=== PATIENT | female | born 1985 | race Two or more races ===

== ENCOUNTER 2024-08-16 10:44 | Observation (INO) | payer MEDICAID ==
[2024-08-16] MEDS ORDERED: INSU100I70 SC (11:11)
[2024-08-16] MEDS ORDERED: METF-370 PO (11:11)
[2024-08-16] MEDS ORDERED: PREN-96 PO (11:11)
[2024-08-16] MEDS ORDERED: GLYB2.5T8 PO (11:11)
--- NOTE | 2024-08-17 09:16 | DVHDS2 ---
Obstetrics Discharge Summary Obstetrics Discharge Summary Date of Admission: Aug 16, 2024 Date of Discharge: Aug 16, 2024 Reason For Admission: Observational/Evaluation ( Status GDM A2 evaluation) Procedures: NST, Ultrasound Discharge Diagnosis: Others (Reasuring infant ) Discharge Information: Activity, Diet (Routine), Medications (None), I nstructions (Routine), Discharge to (Home), Discarge date RAGHU MUKHERJEE DO Aug 17, 2024 09:16
== END 2024-08-16 11:40 | disposition home or self-care (01) ==
LOC: LDRP 10:44
PROVIDERS: ADMIT Obstetrics & Gynecology; ATTEND Obstetrics & Gynecology
DX: O24.419 Gestational diabetes mellitus in pregnancy, unspecified control (principal); Z98.890 Other specified postprocedural states; Z79.899 Other long term (current) drug therapy; Z3A.29 29 weeks gestation of pregnancy
CPT/HCPCS: 59025; 81002; 82948; 82962; 94760; G0378

== ENCOUNTER 2024-08-20 11:05 | Observation (INO) | payer MEDICAID ==
[~2024-08-20] VITALS: Ht 162.6 cm; Wt 102.1 kg
[~2024-08-20 11:05] MED LIST: GLYB2.5T8 PO; INSU100I70 SC; METF-370 PO; PREN-96 PO
== END 2024-08-20 12:16 | disposition home or self-care (01) ==
LOC: LDRP 11:05 → UNDOADMOB 11:05 → LDRP 11:18 → UNDODISOB 12:16
PROVIDERS: ADMIT Obstetrics & Gynecology; ATTEND Obstetrics & Gynecology
DX: O24.419 Gestational diabetes mellitus in pregnancy, unspecified control (principal); O99.323 Drug use complicating pregnancy, third trimester; F12.90 Cannabis use, unspecified, uncomplicated; Z3A.29 29 weeks gestation of pregnancy; Z79.899 Other long term (current) drug therapy
CPT/HCPCS: 59025; 81002; 94760; G0378

== ENCOUNTER 2024-08-23 09:02 | Observation (INO) | payer MEDICAID ==
--- NOTE | 2024-08-23 13:09 | DVHDS2 ---
Physician Discharge Progress N Final Diagnosis: GDM Operations or Procedures: Operations or Procedures NST,SONO Condition on Discharge: Good Disposition: Home Discharge Instructions: Diet: Consistent carbohydrate Activity: No Restrictions, As Tolerated Medications: NA Follow Up Care: Specialist: 4D Discharge Statement: "Patient was advised to return to the ER or call 911 if any headaches, dizziness, shortness of breath, chest pain, abdominal pain, bleeding, fevers, or worsening of medical condition. Patient was counseled about treatment plan, medications, possible side effects, patientverbalized understanding. All questions were answered to the best of my ability. This discharge took greater then 30 minutes in planning, reviewing documentation, counseling the patient, and discussing with other team members." TRISTAN VENEGAS DO Aug 23, 2024 13:09
== END 2024-08-23 10:27 | disposition home or self-care (01) ==
LOC: LDRP 09:02
PROVIDERS: ADMIT Obstetrics & Gynecology; ATTEND Obstetrics & Gynecology
DX: O24.419 Gestational diabetes mellitus in pregnancy, unspecified control (principal); Z98.890 Other specified postprocedural states; Z79.899 Other long term (current) drug therapy; Z3A.30 30 weeks gestation of pregnancy
CPT/HCPCS: 59025; 81002; 82948; 82962; 94760; G0378

== ENCOUNTER 2024-08-27 07:58 | Observation (INO) | payer MEDICAID ==
[~2024-08-27] VITALS: Ht 162.6 cm; Wt 102.1 kg
--- NOTE | 2024-08-27 11:50 | DVHDS2 ---
Physician Discharge Progress N Final Diagnosis: gdm Operations or Procedures: Operations or Procedures nst,sono Condition on Discharge: Good Disposition: Home Discharge Instructions: Diet: Consistent carbohydrate Activity: Light activity Medications: na Follow Up Care: Specialist: 4d Discharge Statement: "Patient was advised to return to the ER or call 911 if any headaches, dizziness, shortness of breath, chest pain, abdominal pain, bleeding, fevers, or worsening of medical condition. Patient was counseled about treatment plan, medications, possible side effects, patientverbalized understanding. All questions were answered to the best of my ability. This discharge took greater then 30 minutes in planning, reviewing documentation, counseling the patient, and discussing with other team members." Visit Coding OBGYN Date of Service: Aug 27, 2024 Billing Provider: TRISTAN VENEGAS DO RETAIL MANAGER IN TRAINING Common Visit Codes: 25985-[id number] OBS CARE (HIGH) TRISTAN VENEGAS DO Aug 27, 2024 11:50
== END 2024-08-27 11:56 | disposition home or self-care (01) ==
LOC: LDRP 11:00
PROVIDERS: ADMIT Obstetrics & Gynecology; ATTEND Obstetrics & Gynecology
DX: O24.419 Gestational diabetes mellitus in pregnancy, unspecified control (principal); O99.323 Drug use complicating pregnancy, third trimester; F12.90 Cannabis use, unspecified, uncomplicated; Z3A.30 30 weeks gestation of pregnancy; Z79.899 Other long term (current) drug therapy
CPT/HCPCS: 59025; 81002; 82948; 82962; 94760; G0378

== ENCOUNTER 2024-08-30 09:55 | Observation (INO) | payer MEDICAID ==
--- NOTE | 2024-08-31 07:50 | DVHDS2 ---
Physician Discharge Progress N Final Diagnosis: GDM Operations or Procedures: Operations or Procedures NST/BPP/RAMAKRISHNA Accucheck All WNL Condition on Discharge: Stable Disposition: Home Discharge Instructions: Diet: Consistent carbohydrate Activity: No Restrictions, As Tolerated Follow Up/Referral: As scheduled Medications: N/A Follow Up Care: Discharge Statement: "Patient was advised to return to the ER or call 911 if any headaches, dizziness, shortness of breath, chest pain, abdominal pain, bleeding, fevers, or worsening of medical condition. Patient was counseled about treatment plan, medications, possible side effects, patientverbalized understanding. All questions were answered to the best of my ability. This discharge took greater then 30 minutes in planning, reviewing documentation, counseling the patient, and discussing with other team members." Visit Coding OBGYN Date of Service: Aug 30, 2024 Billing Provider: JEVON ORTEGA DO BUSINESS OPERATIONS DIRECTOR Common Visit Codes: 03062-BKD/OBS SAME DATE (MOD) BUSINESS OPERATIONS DIRECTOR Procedure Codes: 53438-84- NON-STRESS TEST JEVON ORTEGA DO Aug 31, 2024 07:50
== END 2024-08-30 10:55 | disposition home or self-care (01) ==
LOC: LDRP 09:55
PROVIDERS: ADMIT Obstetrics & Gynecology; ATTEND Obstetrics & Gynecology
DX: O24.419 Gestational diabetes mellitus in pregnancy, unspecified control (principal); Z98.890 Other specified postprocedural states; Z79.899 Other long term (current) drug therapy; Z3A.31 31 weeks gestation of pregnancy
CPT/HCPCS: 59025; 81002; 82948; 82962; 94760; G0378

== ENCOUNTER 2024-09-03 12:36 | Observation (INO) | payer MEDICAID ==
--- NOTE | 2024-09-03 16:53 | DVHDS2 ---
Physician Discharge Progress N Final Diagnosis: testing for GDM, A2 Operations or Procedures: Operations or Procedures 39yo IUP@31.6wks, +FM, denies UCs/LOF/VB VSS NST reactive FKC/PTL precautions reviewed. Dr. Lockwood consulted, agrees with POC. Condition on Discharge: Stable Disposition: Home Discharge Instructions: Diet: Consistent carbohydrate Activity: No Restrictions, As Tolerated Medications: see med list Follow Up Care: Specialist: f/u in 3 days Discharge Statement: "Patient was advised to return to the ER or call 911 if any headaches, dizziness, shortness of breath, chest pain, abdominal pain, bleeding, fevers, or worsening of medical condition. Patient was counseled about treatment plan, medications, possible side effects, patientverbalized understanding. All questions were answered to the best of my ability. This discharge took greater then 30 minutes in planning, reviewing documentation, counseling the patient, and discussing with other team members." Visit Coding OBGYN Date of Service: Sep 03, 2024 Billing Provider: ROSALIO WASHINGTON CNM SUPERVISOR BOARDING Common Visit Codes: 98776-ICFXEOE OBS CARE (HIGH) ROSALIO WASHINGTON CNM Sep 03, 2024 16:53
== END 2024-09-03 15:15 | disposition home or self-care (01) ==
LOC: LDRP 13:47 → UNDOADMOB 13:47 → LDRP 14:01 → UNDODISOB 15:15
PROVIDERS: ADMIT Obstetrics & Gynecology; ATTEND Obstetrics & Gynecology
DX: O24.419 Gestational diabetes mellitus in pregnancy, unspecified control (principal); Z3A.31 31 weeks gestation of pregnancy; Z79.899 Other long term (current) drug therapy
CPT/HCPCS: 59025; 81002; 82948; 82962; 94760; G0378

== ENCOUNTER 2024-09-06 09:00 | Observation (INO) | payer MEDICAID ==
--- NOTE | 2024-09-06 09:43 | DVH ---
CLINICAL HISTORY: Gestational diabetes. COMPARISON: None TECHNIQUE: biophysical profile was performed. Transabdominal sonographic images of the fetus we re obtained. FINDINGS: The fetus is in cephalic position. heart rate measures 131 BPM. Amniotic fluid index measures 18.6 cm. The placenta is posterior in position. Dense of placenta previa or abruption.ii BPP profile is an overall score of 8/8, with 2/2 points for breathing, with at least one episode of breathing over a 30 second duration during a 30 minute observation, 2/2 points for m ovements, with 3 or more discrete body or limb movements, 2/2 points for tone, with one or more episodes of extremity extension with return to flexion, or opening and closing of hand, and 2/ 2 points for amniotic fluid, with at least 1 pocket of amniotic fluid that measures 2 cm in 2 perpend icular planes. IMPRESSION: BPP score of 8/8.
--- NOTE | 2024-09-06 22:29 | DVHDS2 ---
Physician Discharge Progress N Final Diagnosis: iup at 32 wks with gdma2 Operations or Procedures: Operations or Procedures nst,sono 32wks Condition on Discharge: Good Disposition: Home Discharge Instructions: Diet: Consistent carbohydrate Activity: No Restrictions, As Tolerated Medications: na Follow Up Care: Specialist: 4d Discharge Statement: "Patient was advised to return to the ER or call 911 if any headaches, dizziness, shortness of breath, chest pain, abdominal pain, bleeding, fevers, or worsening of medical condition. Patient was counseled about treatment plan, medications, possible side effects, patientverbalized understanding. All questions were answered to the best of my ability. This discharge took greater then 30 minutes in planning, reviewing documentation, counseling the patient, and discussing with other team members." Visit Coding OBGYN Date of Service: Sep 06, 2024 Billing Provider: TRISTAN VENEGAS DO UNDERGROUND UTILITY LOCATOR Common Visit Codes: 96591-PPSPZKC INP/OBS CARE (HIGH), 01355-MCP/OBS DISCH DAY >30MIN UNDERGROUND UTILITY LOCATOR Procedure Codes: 37698-03- NON-STRESS TEST TRISTAN VENEGAS DO Sep 06, 2024 22:29
== END 2024-09-06 10:05 | disposition home or self-care (01) ==
LOC: LDRP 09:00
PROVIDERS: ADMIT Obstetrics & Gynecology; ATTEND Obstetrics & Gynecology
DX: O24.419 Gestational diabetes mellitus in pregnancy, unspecified control (principal); Z3A.32 32 weeks gestation of pregnancy; Z79.899 Other long term (current) drug therapy; Z98.890 Other specified postprocedural states
CPT/HCPCS: 59025; 76818; 81002; 82948; 82962; 94760; G0378

== ENCOUNTER 2024-09-10 14:07 | Observation (INO) | payer MEDICAID ==
--- NOTE | 2024-09-10 15:57 | DVH ---
CLINICAL HISTORY: Gestational diabetes. COMPARISON: US BIOPHYSICAL PROFILE on DOS: 09/06/24 TECHNIQUE: biophysical profile was performed. Transabdominal sonographic images of the fetus we re obtained. FINDINGS: The fetus is in cephalic position. heart rate measures 141 BPM. Amniotic fluid index measures 23.3 cm. The placenta is posterior in position. BPP profile is an overall score of 8/8, with 2/2 points for breathing, with at least one episode of breathing over a 30 second duration during a 30 minute observation, 2/2 points for m ovements, with 3 or more discrete body or limb movements, 2/2 points for tone, with one or more episodes of extremity extension with return to flexion, or opening and closing of hand, and 2/ 2 points for amniotic fluid, with at least 1 pocket of amniotic fluid that measures 2 cm in 2 perpend icular planes. IMPRESSION: 1. BPP score of 8/8. 2. Amniotic fluid index measures 23.3 cm.
--- NOTE | 2024-09-10 16:27 | DVHDS2 ---
Physician Discharge Progress N Final Diagnosis: testing for GDM, A2 Problems List: (1) GDM, class A2 Operations or Procedures: Operations or Procedures 39yo IUP@32.6wks, +FM, denies UCs/LOF/VB VSS BG-84 NST reactive FKC/PTL precautions reviewed Dr. Lockwood consulted, agrees with POC. Other Interventions Other Interventions [address] [address] Ph: [phone] DIAGNOSTIC IMAGING Diagnostic Imaging Report : [id number] Signed PATIENT: KEREN REYES ACCT: [id number] UNIT: [id number] : 1985 LOC: [facility] ROOM / BED: TRIAGE1 / A AGE / SEX: 39 / F ADM STATUS: ADM IN SERVICE 1503 ORDERING PHYSICIAN: TRISTAN LOCKWOOD DO PROCEDURE(s): BPP - BIOPHYSICAL PROFILE REASON: GDMA2 ORDER NUMBER(s): [id number], ACCESSION NUMBER(s): [id number] CLINICAL HISTORY: Gestational diabetes. COMPARISON: US BIOPHYSICAL PROFILE on DOS: 09/06/24 TECHNIQUE: biophysical profile was performed. Transabdominal sonographic images of the fetus were obtained. FINDINGS: The fetus is in cephalic position. heart rate measures 141 BPM. Amniotic fluid index measures 23.3 cm. The placenta is posterior in position. BPP profile is an overall score of 8/8, with 2/2 points for breathing, with at least one episode of breathing over a 30 second duration during a 30 minute observation, 2/2 points for movements, with 3 or more discrete body or limb movements, 2/2 points for tone, with one or more episodes of extremity extension with return to flexion, or opening and closing of hand, and 2/2 points for amniotic fluid, with at least 1 pocket of amniotic fluid that measures 2 cm in 2 perpendicular planes. IMPRESSION: 1. BPP score of 8/8. 2. Amniotic fluid index measures 23.3 cm. ATED BY: FARHAD CORCORAN DO DICTATED DATE/TIME: 09/10/24 [id number] SIGNED BY: FARHAD CORCORAN DO SIGNED DATE/TIME: 09/10/24 6265 CC: Condition on Discharge: Stable Disposition: Home Discharge Instructions: Diet: Consistent carbohydrate Activity: No Restrictions, As Tolerated Medications: see med list Follow Up Care: Specialist: f/u in 3 days Discharge Statement: "Patient was advised to return to the ER or call 911 if any headaches, dizziness, shortness of breath, chest pain, abdominal pain, bleeding, fevers, or worsening of medical condition. Patient was counseled about treatment plan, medications, possible side effects, patientverbalized understanding. All questions were answered to the best of my ability. This discharge took greater then 30 minutes in planning, reviewing documentation, counseling the patient, and discussing with other team members." Visit Coding OBGYN Date of Service: Sep 10, 2024 Billing Provider: ROSALIO WASHINGTON CNM MS SQL DBA Common Visit Codes: 65619-ADBQFPH OBS CARE (HIGH) MS SQL DBA Procedure Codes: 67220-41- NON-STRESS TEST ROSALIO WASHINGTON CNM Sep 10, 2024 16:27
== END 2024-09-10 16:42 | disposition home or self-care (01) ==
LOC: LDRP 14:56
PROVIDERS: ADMIT Obstetrics & Gynecology; ATTEND Obstetrics & Gynecology
DX: O24.419 Gestational diabetes mellitus in pregnancy, unspecified control (principal); Z98.890 Other specified postprocedural states; Z79.899 Other long term (current) drug therapy; Z3A.32 32 weeks gestation of pregnancy
CPT/HCPCS: 59025; 76818; 81002; 82948; 82962; G0378

== ENCOUNTER 2024-09-13 11:00 | Observation (INO) | payer MEDICAID ==
--- NOTE | 2024-09-13 12:29 | DVH ---
BIOPHYSICAL PROFILE HISTORY: GDMA2 TECHNIQUE: Multiple real-time grayscale sonographic images through the gravid uterus of the fetus wi th duplex Doppler color flow. FINDINGS: BIOPHYSICAL PROFILE: breathing score: 2 movement score: 2 tone score: 2 Quantitative RAMAKRISHNA score: 2 Total score: 8 out of 8 Single live intrauterine . heart rate of 161 beats per minute. Placenta posteriorly positioned. Cephalic lie. RAMAKRISHNA 26 cm. IMPRESSION: 1. Biophysical profile score: 8 out of 8 2. Elevated RAMAKRISHNA/polyhydramnios.
--- NOTE | 2024-09-14 10:58 | DVHDS2 ---
Discharge Summary Date of Admission Sep 13, 2024 at 11:00 Date of Discharge: Sep 13, 2024 Admitting Diagnosis Not admitted Wounds: Not applicable Labs/Diagnostic Data: Laboratory Results Test 09/13/24 11:45 POC Glucose 101 mg/dl (70-106) Brief Hx & Hospital Course: Patient had normal NST reassuring ultrasound stable for discharge Consults/Reason for consult No consult Condition at Discharge: Good (ons) Final Diagnosis/Problems List GDM A2 intrauterine Discharge Disposition: Home SNF Discharge Will this Physician continue t: No Discharge Instruct/Medications Diet: Consistent carbohydrate, See Comment Diet comment: gestational Diabetes 2 Activity: No Restrictions, As Tolerated Activity comment: Kick Follow Up/Referral: Counts labor precautions as scheduled for usual monitoring biweekly Medications: Continue all prescription medication exactly as prescribed Discharge Statement: "Patient was advised to return to the ER or call 911 if any headaches, dizziness, shortness of breath, chest pain, abdominal pain, bleeding, fevers, or worsening of medical condition. Patient was counseled about treatment plan, medications, possible side effects, patientverbalized understanding. All questions were answered to the best of my ability. This discharge took greater then 30 minutes in planning, reviewing documentation, counseling the patient, and discussing with other team members." ASSESSMENT ASSESSMENT Assessment Visit Coding OBGYN Date of Service: Sep 14, 2024 Billing Provider: RAGHU MUKHERJEE DO FLAME DEGREASER Common Visit Codes: 04257-GZU/OBS SAME DATE (LOW), 20188-YWZ/OBS SAME DATE (MOD), 24387-PXE/OBS SAME DATE (HIGH) FLAME DEGREASER Procedure Codes: 43688-94- NON-STRESS TEST RAGHU MUKHERJEE DO Sep 14, 2024 10:58
== END 2024-09-13 12:31 | disposition home or self-care (01) ==
LOC: LDRP 11:00
PROVIDERS: ADMIT Obstetrics & Gynecology; ATTEND Obstetrics & Gynecology
DX: O24.419 Gestational diabetes mellitus in pregnancy, unspecified control (principal); Z98.890 Other specified postprocedural states; Z79.899 Other long term (current) drug therapy; Z3A.33 33 weeks gestation of pregnancy
CPT/HCPCS: 59025; 76818; 81002; 82948; 82962; G0378

== ENCOUNTER 2024-09-17 06:36 | Observation (INO) | payer MEDICAID ==
[~2024-09-17] VITALS: Ht 162.6 cm; Wt 99.8 kg
--- NOTE | 2024-09-17 11:24 | DVH ---
BIOPHYSICAL PROFILE HISTORY: GDM TECHNIQUE: Multiple transabdominal real-time grayscale sonographic images through the gravid uterus of the fetus with duplex Doppler color flow and M-mode spectral analysis FINDINGS: BIOPHYSICAL PROFILE: breathing score: 2 movement score: 2 tone score: 2 Quantitative RAMAKRISHNA score: 2 (RAMAKRISHNA: 28.4 Cm.) Total score: 8 The cervix not well visualized. IMPRESSION: Biophysical profile score: 8 Polyhydramnios with RAMAKRISHNA of 28 cm
[2024-09-17 12:14] LABS: Urine Bacteria FEW /hpf (None Seen); Urine Blood Negative /uL (Negative); Urine Clarity Clear (Clear); Urine Color Colorless (Yellow); Urine Protein, UAD Negative (Negative); Urine Specific Gravity 1.003 (1.001-1.035); Urine Squamous Epithelial Cell FEW /hpf (<5); Urine Urobilinogen Normal (Negative); Urine WBC < 1 /HPF (0-5); Urine pH 6.5 (5.0-9.0)
[2024-09-17] MEDS: LACTATED RINGER'S 1,000 ML IV ONE (12:15)
[2024-09-17 12:32] LABS: Amphetamine Screen, Urine Neg (NEGATIVE); Barbiturate Scree,Urine Neg (NEGATIVE); Benzodiazephine Screen, Urine Neg (NEGATIVE); Cannabinoid Screen, Urine Pos (NEGATIVE); Cocaine Screen, Urine Neg (NEGATIVE); Opiate Scree,Urine Neg (NEGATIVE); Phencyclidine Screen, Urine Neg (NEGATIVE)
--- NOTE | 2024-09-17 12:56 | DVHDS2 ---
Physician Discharge Progress N Final Diagnosis: gdma2 Operations or Procedures: Operations or Procedures tessatorlandoruma Commentary: Commentary ivf Condition on Discharge: Good Disposition: Home Discharge Instructions: Diet: Consistent carbohydrate Activity: No Restrictions, As Tolerated Medications: na Follow Up Care: Specialist: 3d Discharge Statement: "Patient was advised to return to the ER or call 911 if any headaches, dizziness, shortness of breath, chest pain, abdominal pain, bleeding, fevers, or worsening of medical condition. Patient was counseled about treatment plan, medications, possible side effects, patientverbalized understanding. All questions were answered to the best of my ability. This discharge took greater then 30 minutes in planning, reviewing documentation, counseling the patient, and discussing with other team members." Visit Coding OBGYN Date of Service: Sep 17, 2024 Billing Provider: TRISTAN VENEGAS DO EQUIPMENT SERVICE ASSOCIATE Common Visit Codes: 86851-[id number] INP/OBS CARE(HIGH) TRISTAN VENEGAS DO Sep 17, 2024 12:56
== END 2024-09-17 12:32 | disposition home or self-care (01) ==
LOC: UNDOADMOB 10:03 → LDRP 10:03
PROVIDERS: ADMIT Obstetrics & Gynecology; ATTEND Obstetrics & Gynecology
DX: O24.419 Gestational diabetes mellitus in pregnancy, unspecified control (principal); Z79.899 Other long term (current) drug therapy; Z3A.33 33 weeks gestation of pregnancy
CPT/HCPCS: 59025; 76819; 80307; 81001; 81002; 82948; 82962; 96360; 96361; G0378; 76818

== ENCOUNTER 2024-09-20 08:52 | Observation (INO) | payer MEDICAID ==
--- NOTE | 2024-09-20 09:55 | DVH ---
CLINICAL HISTORY: Gestational diabetes. COMPARISON: US BIOPHYSICAL PROFILE on DOS: 09/17/24, US BIOPHYSICAL PROFILE on DOS: 09/13/24, US BIOPHY SICAL PROFILE on DOS: 09/10/24 TECHNIQUE: biophysical profile was performed. Transabdominal sonographic images of the fetus we re obtained. FINDINGS: The fetus is in breech position. heart rate measures 132 BPM. Amniotic fluid index me asures 28.3 cm. The placenta is posterior in position. BPP profile is an overall score of 8/8, with 2/2 points for breathing, with at least one episode of breathing over a 30 second duration during a 30 minute observation, 2/2 points for m ovements, with 3 or more discrete body or limb movements, 2/2 points for tone, with one or more episodes of extremity extension with return to flexion, or opening and closing of hand, and 2/ 2 points for amniotic fluid, with at least 1 pocket of amniotic fluid that measures 2 cm in 2 perpend icular planes. There is a mobile echogenic structure adjacent to the placenta, of uncertain etiology. IMPRESSION: 1. BPP score of 8/8. 2. Polyhydramnios. 3. Mobile echogenic structure adjacent to the placenta, of uncertain etiology, possibly placental tis myron or debris.
--- NOTE | 2024-09-20 13:00 | DVHDS2 ---
Physician Discharge Progress N Final Diagnosis: iup at 34wks with gdm and poly Operations or Procedures: Operations or Procedures nst 34wks,sono Condition on Discharge: Good Disposition: Home Discharge Instructions: Diet: Consistent carbohydrate Activity: No Restrictions, As Tolerated Medications: na Follow Up Care: Specialist: 3d Discharge Statement: "Patient was advised to return to the ER or call 911 if any headaches, dizziness, shortness of breath, chest pain, abdominal pain, bleeding, fevers, or worsening of medical condition. Patient was counseled about treatment plan, medications, possible side effects, patientverbalized understanding. All questions were answered to the best of my ability. This discharge took greater then 30 minutes in planning, reviewing documentation, counseling the patient, and discussing with other team members." Visit Coding OBGYN Date of Service: Sep 20, 2024 Billing Provider: TRISTAN VENEGAS DO CYBER FORENSIC SPECIALIST Common Visit Codes: 86366-AGOHIRQ INP/OBS CARE (HIGH) CYBER FORENSIC SPECIALIST Procedure Codes: 98381-28- NON-STRESS TEST TRISTAN VENEGAS DO Sep 20, 2024 13:00
== END 2024-09-20 10:21 | disposition home or self-care (01) ==
LOC: LDRP 08:52
PROVIDERS: ADMIT Obstetrics & Gynecology; ATTEND Obstetrics & Gynecology
DX: O24.419 Gestational diabetes mellitus in pregnancy, unspecified control (principal); O40.3XX0 Polyhydramnios, third trimester, not applicable or unspecified; Z98.890 Other specified postprocedural states; Z79.899 Other long term (current) drug therapy; Z3A.34 34 weeks gestation of pregnancy
CPT/HCPCS: 76818; 81002; 82948; 82962; 94760; G0378; 59025

== ENCOUNTER 2024-09-24 07:16 | Observation (INO) | payer MEDICAID ==
--- NOTE | 2024-09-24 11:18 | DVH ---
BIOPHYSICAL PROFILE HISTORY: GDMA2/poly Comparison Study: None TECHNIQUE: Multiple real-time grayscale sonographic images through the gravid uterus of the fetus wi th duplex Doppler color flow and M-mode spectral analysis FINDINGS: BIOPHYSICAL PROFILE: breathing score: 2 movement score: 2 tone score: 2 Quantitative RAMAKRISHNA score: 2 (RAMAKRISHNA: 24.1 Cm.) Total score: 8 The cervix is not visualized Single live fetus in transverse/ presentation. heart rate 138 beats per minute. Grade 2, posterior placenta without previa or abruption IMPRESSION: Biophysical profile score: 8 RAMAKRISHNA: 24.1 Cm
--- NOTE | 2024-09-24 11:37 | DVHDS2 ---
Physician Discharge Progress N Final Diagnosis: gdm,drug use Operations or Procedures: Operations or Procedures nst,sono Condition on Discharge: Good Disposition: Home Discharge Instructions: Diet: Consistent carbohydrate Activity: No Restrictions, As Tolerated Medications: na Follow Up Care: Specialist: 3d Discharge Statement: "Patient was advised to return to the ER or call 911 if any headaches, dizziness, shortness of breath, chest pain, abdominal pain, bleeding, fevers, or worsening of medical condition. Patient was counseled about treatment plan, medications, possible side effects, patientverbalized understanding. All questions were answered to the best of my ability. This discharge took greater then 30 minutes in planning, reviewing document ation, counseling the patient, and discussing with other team members." Visit Coding OBGYN Date of Service: Sep 24, 2024 Billing Provider: TRISTAN VENEGAS DO CNC PROGRAMMER Common Visit Codes: 60747-VLYGLIE INP/OBS CARE (HIGH) CNC PROGRAMMER Procedure Codes: 01746-79- NON-STRESS TEST TRISTAN VENEGAS DO Sep 24, 2024 11:37
== END 2024-09-24 11:44 | disposition home or self-care (01) ==
LOC: LDRP 10:03 → UNDOADMOB 10:03 → LDRP 10:31 → UNDODISOB 11:44
PROVIDERS: ADMIT Obstetrics & Gynecology; ATTEND Obstetrics & Gynecology
DX: O24.410 Gestational diabetes mellitus in pregnancy, diet controlled (principal); O40.3XX0 Polyhydramnios, third trimester, not applicable or unspecified; O99.323 Drug use complicating pregnancy, third trimester; F12.90 Cannabis use, unspecified, uncomplicated; Z3A.34 34 weeks gestation of pregnancy; Z98.890 Other specified postprocedural states; Z79.899 Other long term (current) drug therapy; Z79.4 Long term (current) use of insulin; Z79.84 Long term (current) use of oral hypoglycemic drugs
CPT/HCPCS: 76818; 81002; 82948; 82962; 94760; G0378; 59025

== ENCOUNTER 2024-09-27 18:59 | Observation (INO) | payer MEDICAID ==
--- NOTE | 2024-09-27 19:41 | DVH ---
BIOPHYSICAL PROFILE HISTORY: GDMA2 TECHNIQUE: Multiple transabdominal real-time grayscale sonographic images through the gravid uterus of the fetus with duplex Doppler color flow and M-mode spectral analysis FINDINGS: BIOPHYSICAL PROFILE: breathing score: 2 movement score: 2 tone score: 2 Quantitative RAMAKRISHNA score: 2 (RAMAKRISHNA: 22 Cm.) Total score: 8 The cervix is not well-visualized Single live fetus in cephalic presentation. heart rate 153 beats per minute. Posterior placenta without previa or abruption IMPRESSION: Biophysical profile score: 8
--- NOTE | 2024-09-28 13:16 | DVHDS2 ---
Physician Discharge Progress N Final Diagnosis: 35 / ,Polyhydramnios, GDM A2 Operations or Procedures: Operations or Procedures none Consultations: Consultations none Condition on Discharge: Good Disposition: Home SNF Discharge Will this Physician continue t: No Discharge Instructions: Diet: Consistent carbohydrate Activity: No Restrictions, As Tolerated Follow Up/Referral: 1 wk Medications: continue current meds no new meds Follow Up Care: Discharge Statement: "Patient was advised to return to the ER or call 911 if any headaches, dizziness, shortness of breath, chest pain, abdominal pain, bleeding, fevers, or worsening of medical condition. Patient was counseled about treatment plan, medications, possible side effects, patientverbalized understanding. All questions were answered to the best of my ability. This discharge took greater then 30 minutes in planning, reviewing documentation, counseling the patient, and discussing with other team members." Visit Coding OBGYN Date of Service: Sep 28, 2024 Billing Provider: RAGHU MUKHERJEE DO SURVEILLANCE SENSOR OPERATOR Common Visit Codes: 30041-YXB/OBS SAME DATE (HIGH) SURVEILLANCE SENSOR OPERATOR Procedure Codes: 37451-36- NON-STRESS TEST RAGHU MUKHERJEE DO Sep 28, 2024 13:16
== END 2024-09-27 20:00 | disposition home or self-care (01) ==
LOC: LDRP 18:59
PROVIDERS: ADMIT Obstetrics & Gynecology; ATTEND Obstetrics & Gynecology
DX: O24.419 Gestational diabetes mellitus in pregnancy, unspecified control (principal); O40.3XX0 Polyhydramnios, third trimester, not applicable or unspecified; Z98.890 Other specified postprocedural states; Z79.899 Other long term (current) drug therapy; Z3A.35 35 weeks gestation of pregnancy
CPT/HCPCS: 59025; 76819; 81002; 82948; 82962; 94760; G0378; 76818

== ENCOUNTER 2024-10-01 17:14 | Observation (INO) | payer MEDICAID ==
--- NOTE | 2024-10-01 18:48 | DVH ---
BIOPHYSICAL PROFILE HISTORY: GDMA2/poly TECHNIQUE: Multiple transabdominal real-time grayscale sonographic images through the gravid uterus of the fetus with duplex Doppler color flow and M-mode spectral analysis FINDINGS: BIOPHYSICAL PROFILE: breathing score: 2 movement score: 2 tone score: 2 Quantitative RAMAKIRSHNA score: 2 (RAMAKRISHNA: 21.6 Cm.) Total score: 8/8 Placenta is posterior. Single live fetus in cephalic presentation. heart rate 134 beats per minute. IMPRESSION: 1. Biophysical profile score: 8/8
--- NOTE | 2024-10-01 22:27 | DVHDS2 ---
Physician Discharge Progress N Final Diagnosis: GDMA2/polyhydramnios Operations or Procedures: Operations or Procedures NST/BPP/RAMAKRISHNA ALL NORMAL Condition on Discharge: Stable Disposition: Home Discharge Instructions: Diet: Consistent carbohydrate Activity: No Restrictions, As Tolerated Follow Up/Referral: as scheduled Medications: N/A Follow Up Care: Discharge Statement: "Patient was advised to return to the ER or call 911 if any headaches, dizziness, shortness of breath, chest pain, abdominal pain, bleeding, fevers, or worsening of medical condition. Patient was counseled about treatment plan, medications, possible side effects, patientverbalized understanding. All questions were answered to the best of my ability. This discharge took greater then 30 minutes in planning, reviewing documentation, counseling the patient, and discussing with other team members." Visit Coding OBGYN Date of Service: Oct 01, 2024 Billing Provider: JEVON ORTEGA DO COREMAKER PIPE Common Visit Codes: 47126-BHW/OBS SAME DATE (MOD) COREMAKER PIPE Procedure Codes: 73543-57- NON-STRESS TEST JEVON ORTEGA DO Oct 01, 2024 22:27
== END 2024-10-01 18:30 | disposition home or self-care (01) ==
LOC: LDRP 17:14
PROVIDERS: ADMIT Obstetrics & Gynecology; ATTEND Obstetrics & Gynecology
DX: O24.419 Gestational diabetes mellitus in pregnancy, unspecified control (principal); O40.3XX0 Polyhydramnios, third trimester, not applicable or unspecified; Z3A.35 35 weeks gestation of pregnancy; Z79.899 Other long term (current) drug therapy
CPT/HCPCS: 59025; 76819; 81002; 82948; 82962; 94760; G0378

== ENCOUNTER 2024-10-04 19:05 | Observation (INO) | payer MEDICAID ==
--- NOTE | 2024-10-04 20:32 | DVH ---
ULTRASOUND BIOPHYSICAL PROFILE CLINICAL HISTORY: POLY GDMA1 COMPARISON: US BIOPHYSICAL PROFILE on DOS: 10/01/24 TECHNIQUE: Real-time grayscale, color flow and M-mode imaging of the gravid uterus is performed. FINDINGS: Single living intrauterine gestation. heart rate 149 beats per minute. Cephalic presentation. Amniotic fluid index: 26.3cm. Previously 21.6 cm. Biophysical profile: 8 out of 8. (2 breathing, 2 activity, 2 tone, 2 RAMAKRISHNA) IMPRESSION: Biophysical profile scoring 8 out of 8. Polyhydramnios.
--- NOTE | 2024-10-04 22:03 | DVHDS2 ---
Physician Discharge Progress N Final Diagnosis: IUP at 36w 2d GDMA1 Polyhydramnios AMA Operations or Procedures: Operations or Procedures S: 39yo G3,2001 with IUP at 36w 2d presents to place for surveillance due to GDM . She reports normal movements, no UCs, no leakage of fluid, vaginal bleeding, ACOSTA, vision changes or epigastric pain O: A&O x3 NAD. Afebrile, VSS Respiration: unlabored Abdomen: Gravid, non-tender to palpation Extremities: No edema BPP 8/8 FHR baseline 160bpm with moderate variability and accelerations; no deceleration A: Normal BPP Reactive NST AMA GDMA1 P: Continue care and surveillance 2x/week Keep scheduled OB follow appointments 3rd trimester emergency S&S F[facility], PTL & pre-eclampsia precautions reviewed with pt; advised to seek health care if any Condition on Discharge: Good Disposition: Home Discharge Instructions: Diet: Regular Activity: No Restrictions, As Tolerated Medications: None Follow Up Care: Discharge Statement: "Patient was advised to return to the ER or call 911 if any headaches, dizziness, shortness of breath, chest pain, abdominal pain, bleeding, fevers, or worsening of medical condition. Patient was counseled about treatment plan, medications, possible side effects, patientverbalized understanding. All questions were answered to the best of my ability. This discharge took greater then 30 minutes in planning, reviewing documentation, counseling the patient, and discussing with other team members." Visit Coding OBGYN Date of Service: Oct 04, 2024 Billing Provider: SABI EGAN CNM MINT WAFER DEPOSITOR Common Visit Codes: 20484-OUY/OBS SAME DATE (HIGH) MINT WAFER DEPOSITOR Procedure Codes: 24205-54- NON-STRESS TEST SABI EGAN CNM Oct 04, 2024 22:03
== END 2024-10-04 20:24 | disposition home or self-care (01) ==
LOC: LDRP 19:05
PROVIDERS: ADMIT Obstetrics & Gynecology; ATTEND Obstetrics & Gynecology
DX: O40.3XX0 Polyhydramnios, third trimester, not applicable or unspecified (principal); O24.419 Gestational diabetes mellitus in pregnancy, unspecified control; Z98.890 Other specified postprocedural states; Z79.899 Other long term (current) drug therapy; Z3A.36 36 weeks gestation of pregnancy
CPT/HCPCS: 76819; 81002; 82948; 94760; G0378

== ENCOUNTER 2024-10-08 06:54 | Observation (INO) | payer MEDICAID ==
--- NOTE | 2024-10-08 13:27 | DVH ---
BIOPHYSICAL PROFILE HISTORY: GDMA2, Poly Comparison Study: 10/04/2024 TECHNIQUE: Multiple real-time grayscale sonographic images through the gravid uterus of the fetus wi th duplex Doppler color flow and M-mode spectral analysis FINDINGS: BIOPHYSICAL PROFILE: breathing score: 2/2 movement score: 2/2 tone score: 2/2 Quantitative RAMAKRISHNA score: 2/2 (RAMAKRISHNA: 26 Cm.) Total score: 8/8 The cervix closed Single live fetus in cephalic presentation. heart rate 146 beats per minute. placenta without previa or abruption IMPRESSION: 1. Biophysical profile score: 8/8 2. The amniotic fluid index is again measured at 26 cm suggesting possible polyhydramnios
--- NOTE | 2024-10-08 14:03 | DVHDS2 ---
Physician Discharge Progress N Final Diagnosis: gdm 36wks Operations or Procedures: Operations or Procedures nst,sono Condition on Discharge: Good Disposition: Home Discharge Instructions: Diet: Consistent carbohydrate Activity: No Restrictions, As Tolerated Medications: na Follow Up Care: Specialist: 3d Discharge Statement: "Patient was advised to return to the ER or call 911 if any headaches, dizziness, shortness of breath, chest pain, abdominal pain, bleeding, fevers, or worsening of medical condition. Patient was counseled about treatment plan, medications, possible side effects, patientverbalized understanding. All questions were answered to the best of my ability. This discharge took greater then 30 minutes in planning, reviewing documentati on, counseling the patient, and discussing with other team members." Visit Coding OBGYN Date of Service: Oct 08, 2024 Billing Provider: TRISTAN VENEGAS DO MARKET RESEARCH ANALYST Common Visit Codes: [id number] INP/OBS CARE (HIGH) MARKET RESEARCH ANALYST Procedure Codes: 92889-00- NON-STRESS TEST TRISTAN VENEGAS DO Oct 08, 2024 14:03
== END 2024-10-08 12:57 | disposition home or self-care (01) ==
LOC: UNDOADMOB 11:10 → LDRP 11:10 → UNDODISOB 12:57
PROVIDERS: ADMIT Obstetrics & Gynecology; ATTEND Obstetrics & Gynecology
DX: O24.419 Gestational diabetes mellitus in pregnancy, unspecified control (principal); Z3A.36 36 weeks gestation of pregnancy; Z79.899 Other long term (current) drug therapy
CPT/HCPCS: 76819; 81002; 82948; 82962; 94760; G0378

== ENCOUNTER 2024-10-11 11:01 | Observation (INO) | payer MEDICAID ==
--- NOTE | 2024-10-11 12:34 | DVH ---
BIOPHYSICAL PROFILE HISTORY: GDMA2/Poly Comparison Study: 10/08/24 TECHNIQUE: Multiple real-time grayscale sonographic images through the gravid uterus of the fetus wi th duplex Doppler color flow and M-mode spectral analysis FINDINGS: BIOPHYSICAL PROFILE: breathing score: 2 movement score: 2 tone score: 2 Quantitative RAMAKRISHNA score: 2 (RAMAKRISHNA: 25.4 Cm.) Total score: 8/8 Single live fetus in cephalic presentation. heart rate 132 beats per minute. Posterior placenta without previa or abruption IMPRESSION: 1. Biophysical profile score: 8/8 2. RAMAKRISHNA is mildly increased at 25 cm, again suggestive of polyhydramnios.
--- NOTE | 2024-10-11 15:38 | DVHDS2 ---
Physician Discharge Progress N Final Diagnosis: GDM-A2 Polyhydramnios Operations or Procedures: Operations or Procedures NST/BPP/RAMAKRISHNA PATIENT: KEREN REYES ACCT: [id number] UNIT: [id number] : 1985 LOC: [facility] ROOM / BED: TRIAGE1 / A AGE / SEX: 39 / F ADM STATUS: ADM IN SERVICE 1109 ORDERING PHYSICIAN: JEVON ORTEGA DO PROCEDURE(s): BPP - BIOPHYSICAL PROFILE REASON: GDMA2/Poly ORDER NUMBER(s): [id number], ACCESSION NUMBER(s): [id number] BIOPHYSICAL PROFILE HISTORY: GDMA2/Poly Comparison Study: 10/08/24 TECHNIQUE: Multiple real-time grayscale sonographic images through the gravid uterus of the fetus with duplex Doppler color flow and M-mode spectral analysis FINDINGS: BIOPHYSICAL PROFILE: breathing score: 2 movement score: 2 tone score: 2 Quantitative RAMAKRISHNA score: 2 (RAMAKRISHNA: 25.4 Cm.) Total score: 8/8 Single live fetus in cephalic presentation. heart rate 132 beats per minute. Posterior placenta without previa or abruption IMPRESSION: 1. Biophysical profile score: 8/8 2. RAMAKRISHNA is mildly increased at 25 cm, again suggestive of polyhydramnios. Condition on Discharge: Stable Disposition: Home Discharge Instructions: Diet: Consistent carbohydrate Activity: Light activity Follow Up/Referral: as scheduled Medications: n/a Follow Up Care: Discharge Statement: "Patient was advised to return to the ER or call 911 if any headaches, dizziness, shortness of breath, chest pain, abdominal pain, bleeding, fevers, or worsening of medical condition. Patient was counseled about treatment plan, medications, possible side effects, patientverbalized understanding. All questions were answered to the best of my ability. This discharge took greater then 30 minutes in planning, reviewing documentation, counseling the patient, and discussing with other team members." Visit Coding OBGYN Date of Service: Oct 11, 2024 Billing Provider: JEVON ORTEGA DO FIRE SUPPRESSION CAPTAIN Common Visit Codes: 35743-FAZ/OBS SAME DATE (HIGH) FIRE SUPPRESSION CAPTAIN Procedure Codes: 24052-65- NON-STRESS TEST JEVON ORTEGA DO Oct 11, 2024 15:38
== END 2024-10-11 12:23 | disposition home or self-care (01) ==
LOC: LDRP 11:01
PROVIDERS: ADMIT Obstetrics & Gynecology; ATTEND Obstetrics & Gynecology
DX: O40.9XX0 Polyhydramnios, unspecified trimester, not applicable or unspecified (principal); O24.419 Gestational diabetes mellitus in pregnancy, unspecified control; Z98.890 Other specified postprocedural states; Z79.899 Other long term (current) drug therapy; Z3A.37 37 weeks gestation of pregnancy
CPT/HCPCS: 76818; 81002; 82948; 82962; 94760; G0378; 76819

== ENCOUNTER 2024-10-15 06:45 | Observation (INO) | payer MEDICAID ==
--- NOTE | 2024-10-15 12:26 | DVH ---
BIOPHYSICAL PROFILE HISTORY: GDMA2, Polyhydraminos Comparison Study: 10/11/2024 TECHNIQUE: Multiple real-time grayscale sonographic images through the gravid uterus of the fetus wi th duplex Doppler color flow and M-mode spectral analysis FINDINGS: BIOPHYSICAL PROFILE: breathing score: 2 movement score: 2 tone score: 2 Quantitative RAMAKRISHNA score: 2 (RAMAKRISHNA: 23.5 Cm.) Total score: 8 The cervix is not visualized Single live fetus in cephalic presentation. heart rate 147 beats per minute. Posterior placenta without previa or abruption IMPRESSION: Biophysical profile score: 8/8 RAMAKRISHNA measures 23.5 cm.
--- NOTE | 2024-10-15 20:56 | DVHDS2 ---
Physician Discharge Progress N Final Diagnosis: testing for GDM, A2/polyhydramnios Operations or Procedures: Operations or Procedures 39yo IUP@37.6wks VSS NST reactive FKC/labor precautions reviewed Other Interventions Other Interventions [address] [address] Ph: [phone] DIAGNOSTIC IMAGING Diagnostic Imaging Report : [id number] Signed PATIENT: KEREN REYES ACCT: [id number] UNIT: [id number] : 1985 LOC: [facility] ROOM / BED: TRIAGE1 / A AGE / SEX: 39 / F ADM STATUS: ADM IN SERVICE 1126 ORDERING PHYSICIAN: ROSALIO WSAHINGTON CNM PROCEDURE(s): BPP - BIOPHYSICAL PROFILE REASON: GDMA2, Polyhydraminos ORDER NUMBER(s): [id number], ACCESSION NUMBER(s): [id number] BIOPHYSICAL PROFILE HISTORY: GDMA2, Polyhydraminos Comparison Study: 10/11/2024 TECHNIQUE: Multiple real-time grayscale sonographic images through the gravid uterus of the fetus with duplex Doppler color flow and M-mode spectral analysis FINDINGS: BIOPHYSICAL PROFILE: breathing score: 2 movement score: 2 tone score: 2 Quantitative RAMAKRISHNA score: 2 (RAMAKRISHNA: 23.5 Cm.) Total score: 8 The cervix is not visualized Single live fetus in cephalic presentation. heart rate 147 beats per minute. Posterior placenta without previa or abruption IMPRESSION: Biophysical profile score: 8/8 RAMAKRISHNA measures 23.5 cm. ATED BY: EL YUSUF MD DICTATED DATE/TIME: 10/15/24 1223 SIGNED BY: EL YUSUF MD SIGNED DATE/TIME: 10/15/24 1223 CC: Condition on Discharge: Stable Disposition: Home Discharge Instructions: Diet: Consistent carbohydrate Activity: No Restrictions, As Tolerated Medications: see med list Follow Up Care: Specialist: f/u in 3 days Discharge Statement: "Patient was advised to return to the ER or call 911 if any headaches, dizziness, shortness of breath, chest pain, abdominal pain, bleeding, fevers, or worsening of medical condition. Patient was counseled about treatment plan, medications, possible side effects, patientverbalized understanding. All questions were answered to the best of my ability. This discharge took greater then 30 minutes in planning, reviewing documentation, counseling the patient, and discussing with other team members." Visit Coding OBGYN Date of Service: Oct 15, 2024 Billing Provider: ROSALIO WASHINGTON CNM OPTICAL ASSISTANT Common Visit Codes: 98651-[id number] OBS CARE (HIGH) OPTICAL ASSISTANT Procedure Codes: 30570-18- NON-STRESS TEST ROSALIO WASHINGTON CNM Oct 15, 2024 20:56
== END 2024-10-15 12:45 | disposition home or self-care (01) ==
LOC: LDRP 11:00
PROVIDERS: ADMIT Obstetrics & Gynecology; ATTEND Obstetrics & Gynecology
DX: O24.419 Gestational diabetes mellitus in pregnancy, unspecified control (principal); O40.3XX0 Polyhydramnios, third trimester, not applicable or unspecified; Z3A.37 37 weeks gestation of pregnancy; Z98.890 Other specified postprocedural states; Z79.899 Other long term (current) drug therapy
CPT/HCPCS: 59025; 76819; 81002; 82948; 94760; G0378

== ENCOUNTER 2024-10-18 19:25 | Inpatient (IN) | payer MEDICAID ==
[~2024-10-18] VITALS: Ht 162.6 cm; Wt 100.7 kg
[2024-10-18] MEDS ORDERED: miSOPROStol 50 MCG per PRE-CUT 1/2 TAB PO PRN (19:45)
[2024-10-18] MEDS ORDERED: NALBUPHINE HCL 10 MG/1ml INJECTION IV PRN (19:45)
[2024-10-18] MEDS ORDERED: NALBUPHINE HCL 10 MG/1ml INJECTION IM PRN (19:45)
[2024-10-18] MEDS ORDERED: LIDOCAINE 2%HCL (LOCAL ANESTH.) INJ 20ML MDV IJ PRN (19:45)
[2024-10-18 20:11] LABS: Basophils # (auto) 0.1 10 ^3/uL (0-0.2); Basophils % (auto) 0.6 % (0.0-2.0); Eosinophils # (auto) 0.1 10 ^3/uL (0-0.8); Hematocrit 41.5 % (36.0-46.0); Hemoglobin 14.4 g/dL (12.2-16.2); Lymphocytes # (auto) 1.8 10 ^3/uL (0.4-5.4); Lymphocytes % (auto) 17.9 % (10.0-50.0); Mean Corpuscular Hemoglobin 30.7 pg (28.0-32.0); Mean Corpuscular Hgb Conc. 34.6 g/dL (32.0-36.0); Mean Corpuscular Volume 88.7 fL (80.0-100.0); Monocytes # (auto) 0.8 10 ^3/uL (0-1.3); Monocytes % (auto) 8.5 % (0.0-12.0); Neutrophils # (auto) 7.2 10 ^3/uL (1.6-8.6); Nucleated Red Blood Cells % 0.1 %; Platelet Count (auto) 221 10^3/uL (140-450); Red Blood Cells 4.67 10^6/uL (4.0-5.20); Red Cell Distribution Width 14.1 % (11.8-14.3)
[2024-10-18 20:25] LABS: Albumin 4.1 g/dL (3.2-4.8); Anion Gap 3 (5-15); BUN/Creatinine Ratio 16.4 (10.0-20.0); Bilirubin, Total 0.5 mg/dL (0.2-1.0); Calcium 9.5 mg/dL (8.7-10.4); Carbon Dioxide 24 mmol/L (20-31); Glucose 100 mg/dL (74-106); Sodium 136 mmol/L (136-145); Total Protein 6.5 g/dL (5.7-8.2)
[2024-10-18 20:27] LABS: Urine Bacteria FEW /hpf (None Seen); Urine Blood Negative /uL (Negative); Urine Clarity Clear (Clear); Urine Color Light-Yellow (Yellow); Urine Mucus FEW (None Seen); Urine Protein, UAD Negative (Negative); Urine Specific Gravity 1.012 (1.001-1.035); Urine Squamous Epithelial Cell FEW /hpf (<5); Urine Urobilinogen Normal (Negative); Urine WBC 8 /HPF (0-5); Urine pH 6.5 (5.0-9.0)
[2024-10-18 20:29] LABS: INR 0.92 (0.9-1.15); Partial Thromboplastin Time 26.4 SEC (24.5-34.5); Prothrombin Time 9.8 sec (9.3-11.8)
[2024-10-18 20:36] LABS: Alanine Aminotransferase < 9 U/L (7-40); Alkaline Phosphatase 136 U/L (46-116); Aspartate Aminotransferase 11 U/L (13-40); Blood Urea Nitrogen 9 mg/dL (9-23); Chloride 109 mmol/L (98-107)
[2024-10-18 20:40] LABS: Amphetamine Screen, Urine Neg (NEGATIVE); Barbiturate Scree,Urine Neg (NEGATIVE); Benzodiazephine Screen, Urine Neg (NEGATIVE); Cannabinoid Screen, Urine Pos (NEGATIVE); Cocaine Screen, Urine Neg (NEGATIVE); Opiate Scree,Urine Neg (NEGATIVE); Phencyclidine Screen, Urine Neg (NEGATIVE)
--- NOTE | 2024-10-18 21:33 | DVHHP2 ---
OB CC & HPI Date Date of Admission: Oct 18, 2024 Patient Identification: : 3 Para: 2 EDC: Oct 30, 2024 Chief Complaints: Reason for admission: induction of labor Indication for induction: medical complication, other (GDMA2 on multiple medication for glucose control) Other reason for admission: IOL for GDMA2 Admission Nurse Assessment Rev: Yes History of Present Complaints The patient is a 39-year-old female, 3, para 2, with EDC 10/30/24. complicated with GDMA2; on multiple medications for glucose control. She presents for scheduled IOL. She repors normal movements, no contraction, no leakage of fluid, no bleeding, ACOSTA or vision changes. Past Medical History Cardiac: No pertinent Hx Pulmonary: No pertinent Hx Central Nervous System: No pertinent Hx GI: No pertinent Hx Hemotology/Oncology: No pertinent Hx Hepatobiliary: No pertinent Hx Psychiatric: No pertinent Hx Musculoskeletal: No pertinent Hx Rheumotologic: No pertinent Hx Infectious Disease: No peritnent Hx ENT: No pertinent Hx Renal/: No pertinent Hx Endocrine: Other (Gestational Diabetes with prior pregnancies. Prediabetes.) Dermatology: No pertinent Hx Past Surgical History: No pertinent Hx OB History OB History Care: Good Care Ultrasounds: Normal mid trimester US Obstetrical Complications: Gestational Diabetes, Other (Polyhydramnios) Medical Complications: None Other Concerns: History of macrosomia with G#1 Allergies: Coded Allergies: NO KNOWN ALLERGIES (Unverified , 10/18/24) Home Meds Reported Medications Vit W/ Ferrous Fumara ( One Daily) Daily Tab, 1 TAB PO DAILY, #90 TAB 3 Refills 08/16/24 Insulin Glargine-Yfgn (Insulin Glargine) 100 Unit/Ml Inj, 26 UNIT SC HS, INJ 08/16/24 Glyburide (Glyburide) 2.5 Mg Tab, 2.5 MG PO for 30 Days, MG 08/16/24 Metformin Hydrochloride (Metformin Hcl) 500 Mg Tab, 500 MG PO DAILY for 30 Days, MG 08/16/24 Current Medications Current Medications Medications (Trade) Dose Ordered Sig/Lew Route PRN Reason Start Time Stop Time Status Last Admin Lactated Ringer's 1,000 ml @ 125 mls/hr Q8H IV 10/18/24 19:45 Nalbuphine HCl (Nubain) 10 mg Q4HP PRN IM MODERATE PAIN (4-6 PAIN SCALE) 10/18/24 19:45 Nalbuphine HCl (Nubain) 10 mg Q4HP PRN IV MODERATE PAIN (4-6 PAIN SCALE) 10/18/24 19:45 Diagnostic Test (Pha) (Accu-Chek Comfort Curve T) 1 strip Q4HR 10/18/24 22:00 Witch Linda (Tucks) 1 pad PRN PRN TOP PERINEAL AREA DISCOMFORT 10/18/24 19:45 Sodium Lauryl Sulfate (Phisoderm) 240 ml PRN PRN TOP PERINEAL AREA DISCOMFORT 10/18/24 19:45 Benzocaine (Dermoplast) 1 applic PRN PRN TOP PERINEAL AREA DISCOMFORT 10/18/24 19:45 Misoprostol (Cytotec) 50 mcg Q4HPRN PRN PO CERVICAL RIPENING 10/18/24 19:45 Lidocaine HCl (Xylocaine) 20 ml ONCE PRN IJ PERINEAL AREA DISCOMFORT 10/18/24 19:45 Family & Social History Family/Social History Past Family/Social History: Type 2 Diabetes -> Patient's mother Blood Type: O+ Rubella: immune RPR/VDRL: Negative GBS Status: Negative HBsAG: Negative Review of Systems Constitutional: No symptom reported Ears, Nose, & Throat: No symptom reported Eyes: No symptom reported Pulmonary/Respiratory: No symptom reported Cardiovascular: No symptom reported Gastrointestinal: No symptom reported Genitourinary: No symptom reported Musculoskeletal: No symptom reported Skin: No symptom reported Psychiatric: No symptom reported Endocrine: No symptom reported Hemotologic/Lymphatic: No symptom reported OB Admission Exam Physical Exam HEENT: Nasal Mucosa Normal, Eyes non-injected, Oropharynx Normal, Moist Membranes, EOMI Heart: Rhythm Normal Lungs: Clear Abdomen: Gravid ( and non-tender to palpation) Extremities: Normal Reflexes: Normal Cervical Dilatation: 1cm Effacement: Other (20%) Station: Ballotable Membranes: Intact Heart Rate: 140's Accelerations: Accelerations Present Decelerations: No Decelerations Group Home Variability: Average (6-25) Contractions on Admission: >10 Minutes Apart OB Plan Plan Admitting Diagnosis: INDUCTION OF LABOR FOR GDMA2/POLY Plan: Induction Induction Methd: Misoprostol protocol Other Plan: IOL process, cervical ripening with medication, cervical ripening balloon, oxytocin etc including the risks, benefits and options discussed with the patient & partner. Informed consent obtained. Risk of pain, bleeding, infection, discussed with the patient and partner Consent for possible blood transfusion obtained. All questions answered. Admit to Place for scheduled IOL Routine L&D admission orders Misoprostol per protocol EFM per policy & protocol Intrauterine resuscitation PRN Labor analgesia PRN Check blood glucose Q 4hours in early labor, advance to Q2hr in active labor Encourage frequent position change and ambulation to facilitate labor & descent Supportive Care Anticipate Managing patient's care in collaboration / consultation with Dr. Lockwood Visit Coding OBGYN Date of Service: Oct 18, 2024 Billing Provider: SABI EGAN CNM WEB CONTENT EDITOR Common Visit Codes: [id number] INP/OBS CARE (HIGH) WEB CONTENT EDITOR Procedure Codes: 24325-59- NON-STRESS TEST SABI EGAN CNM Oct 18, 2024 21:33
[2024-10-18] MEDS ORDERED: ACCU-CHEK COMFORT CURVE STRIP VI SCH (22:00)
[2024-10-18] MEDS: miSOPROStol 50 MCG per PRE-CUT 1/2 TAB PO PRN (22:15)
[2024-10-18] MEDS: DERMOPLAST 60ML BOTTLE TOP PRN (22:15)
[2024-10-18] MEDS: WITCH HAZEL-GLYCERIN PAD TOP PRN (22:15)
[2024-10-18] MEDS: PHISODERM TOP SOLN 240ML BTL TOP PRN (22:15)
[2024-10-19] MEDS: LACTATED RINGER'S 1,000 ML IV SCH (00:10)
--- NOTE | 2024-10-19 05:49 | DVHPN2 ---
[facility] Labor Progress Note Date and Time Seen Date Seen: Oct 19, 2024 Time Seen: 04:45 Subjective Patient reports: No new complaints Objective Vital Signs VSS Monitoring Method Monitoring Method: External Heart Rate Heart Rate Baseline: 130 Heart Rate Variability: Moderate Presence of FHR Accelerations: Yes Presence of FHR Decelerations: No Changes in Trends of Patterns: No Are all 5 Components of the FH: Yes Contractions Contractions Frequency: Other (1-3/10min) Duration of Contraction: 70 Contractions Intensity: Mild Contractions Resting Tone: Relaxed Membranes Membranes: Ruptured Amniotic Fluid Color: Clear Vaginal Exam Vaginal Exam Dilation: 1 Vaginal Exam Effacement: 20 Vaginal Exam Station: -4 Vaginal Exam Presentation: VTX Vaginal Exam Show: None (VE by RN) Medications Medications - Pitocin: No Medication - Epidural: No Medication - Other Misoprostol dose #2 given at 04:02 Lab Results Lab Results Vital Signs Date Time Temp Pulse Resp B/P (MAP) Pulse Ox O2 Delivery O2 Flow Rate FiO2 10/19/24 10:16 120/68 Current Medications Medications (Trade) Dose Ordered Sig/Lew Start Time Stop Time Status Last Admin Dose Admin Lactated Ringer's 1,000 ml @ 125 mls/hr Q8H 10/18/24 19:45 10/19/24 00:10 125 MLS/HR Nalbuphine HCl (Nubain) 10 mg Q4HP PRN 10/18/24 19:45 Nalbuphine HCl (Nubain) 10 mg Q4HP PRN 10/18/24 19:45 Diagnostic Test (Pha) (Accu-Chek Comfort Curve T) 1 strip Q4HR 10/18/24 22:00 Jose L Mckeon (Tucks) 1 pad PRN PRN 10/18/24 19:45 10/18/24 22:15 1 PAD Sodium Lauryl Sulfate (Phisoderm) 240 ml PRN PRN 10/18/24 19:45 10/18/24 22:15 240 ML Benzocaine (Dermoplast) 1 applic PRN PRN 10/18/24 19:45 10/18/24 22:15 1 APPLIC Misoprostol (Cytotec) 50 mcg Q4HPRN PRN 10/18/24 19:45 10/18/24 22:05 DC Lidocaine HCl (Xylocaine) 20 ml ONCE PRN 10/18/24 19:45 Misoprostol (Cytotec) 50 mcg Q4HPRN PRN 10/18/24 22:15 10/19/24 04:02 50 MCG Oxytocin 1,000 ml @ 6 ml/hr Q24H 10/19/24 08:30 10/19/24 10:31 6 ML/HR Oxytocin 500 ml @ 999 mls/hr Q31M ONCE 10/19/24 08:30 10/19/24 09:00 DC 10/19/24 17:29 999 MLS/HR Oxytocin 500 ml @ 125 mls/hr Q4H ONCE 10/19/24 09:00 10/19/24 12:59 DC 10/19/24 17:29 125 MLS/HR Naloxone HCl (Narcan) 0.2 mg PRN ONCE 10/19/24 08:45 10/19/24 08:46 DC Ephedrine Sulfate (ePHEDrine SULFATE) 10 mg PRN ONCE 10/19/24 08:45 10/19/24 08:46 DC Fentanyl Citrate 200 mcg ONCE ONCE 10/19/24 08:45 10/19/24 08:46 DC 10/19/24 10:16 200 MCG Lactated Ringer's 500 ml @ 500 mls/hr Q1H ONCE 10/19/24 08:45 10/19/24 09:44 DC Ondansetron HCl (Zofran) 4 mg Q4HPRN PRN 10/19/24 13:00 10/19/24 14:17 4 MG Sodium Chloride 200 ml @ 0 mls/hr Q0M ONCE 10/19/24 13:30 10/19/24 14:15 DC Sodium Chloride 1,000 ml @ 125 mls/hr Q8H 10/19/24 13:30 10/19/24 14:18 125 MLS/HR Cefazolin Sodium/ Dextrose 50 ml @ 50 mls/hr ONCE ONCE 10/19/24 16:15 10/19/24 17:14 DC 10/19/24 16:32 50 MLS/HR Cefazolin Sodium 50 ml @ 100 mls/hr Q8HR 10/19/24 22:00 Methylergonovine Maleate (Methergine) 0.2 mg ONCE ONCE 10/19/24 17:30 10/19/24 17:46 DC 10/19/24 17:54 0.2 MG Ibuprofen (Motrin Tablet) 600 mg Q6HP PRN 10/19/24 18:30 Acetaminophen (Tylenol Tablet) 650 mg Q4HP PRN 10/19/24 18:30 Oxytocin 500 ml @ 999 mls/hr Q31M ONCE 10/19/24 18:30 10/19/24 19:00 DC Oxytocin 500 ml @ 125 mls/hr Q4H ONCE 10/19/24 19:00 10/19/24 22:59 Ondansetron HCl (Zofran Po) 4 mg Q4HPRN PRN 10/19/24 18:30 Docusate Sodium (Colace Capsule) 200 mg HS 10/19/24 22:00 Laboratory Tests Test 10/19/24 15:59 10/18/24 19:55 10/18/24 19:50 Range/Units POC Glucose 82 70-106 mg/dl White Blood Count 10.0 4.4-10.8 10^3/uL Red Blood Count 4.67 4.0-5.20 10^6/uL Hemoglobin 14.4 12.2-16.2 g/dL Hematocrit 41.5 36.0-46.0 % Mean Corpuscular Volume 88.7 80.0-100.0 fL Mean Corpuscular Hemoglobin 30.7 28.0-32.0 pg Mean Corpuscular Hemoglobin Concent 34.6 32.0-36.0 g/dL Red Cell Distribution Width 14.1 11.8-14.3 % Platelet Count 221 140-450 10^3/uL Mean Platelet Volume 7.9 6.9-10.8 fL Neutrophils (%) (Auto) 72.0 37.0-80.0 % Lymphocytes (%) (Auto) 17.9 10.0-50.0 % Monocytes (%) (Auto) 8.5 0.0-12.0 % Eosinophils (%) (Auto) 1.0 0.0-7.0 % Basophils (%) (Auto) 0.6 0.0-2.0 % Neutrophils # (Auto) 7.2 1.6-8.6 10 ^3/uL Lymphocytes # (Auto) 1.8 0.4-5.4 10 ^3/uL Monocytes # (Auto) 0.8 0-1.3 10 ^3/uL Eosinophils # (Auto) 0.1 0-0.8 10 ^3/uL Basophils # (Auto) 0.1 0-0.2 10 ^3/uL Nucleated Red Blood Cells 0.1 % Prothrombin Time 9.8 9.3-11.8 sec Prothrombin Time INR 0.92 0.9-1.15 Activated Partial Thromboplast Time 26.4 24.5-34.5 SEC Sodium Level 136 136-145 mmol/L Potassium Level 4.0 3.5-5.1 mmol/L Chloride Level 109 H 98-107 mmol/L Carbon Dioxide Level 24 20-31 mmol/L Anion Gap 3 L 5-15 Blood Urea Nitrogen 9 9-23 mg/dL Creatinine 0.55 0.550-1.02 mg/dL Glomerular Filtration Rate Calc 121 >90 mL/min BUN/Creatinine Ratio 16.4 10.0-20.0 Serum Glucose 100 74-106 mg/dL Calcium Level 9.5 8.7-10.4 mg/dL Total Bilirubin 0.5 0.2-1.0 mg/dL Aspartate Amino Transferase (AST) 11 L 13-40 U/L Alanine Aminotransferase (ALT) < 9 7-40 U/L Alkaline Phosphatase 136 H 46-116 U/L Total Protein 6.5 5.7-8.2 g/dL Albumin 4.1 3.2-4.8 g/dL Treponema pallidum Antibody Non-reactive Negative Hepatitis C Antibody Negative Negative Urine Color Light-yellow Yellow Urine Clarity Clear Clear Urine pH 6.5 5.0-9.0 Urine Specific [place] 1.012 1.001-1.035 Urine Protein Negative Negative Urine Ketones Negative Negative Urine Blood Negative Negative /uL Urine Nitrite Negative Negative Urine Bilirubin Negative Negative Urine Urobilinogen Normal Negative mg/dL Urine Leukocyte Esterase 1+ Negative /uL Urine RBC 1 0 - 4 /hpf Urine Microscopic WBC 8 H 0-5 /HPF Urine Squamous Epithelial Cells Few <5 /hpf Urine Bacteria Few H None Seen /hpf Urine Mucus Few None Seen Urine Glucose Normal Normal mg/dL Urine Opiates Screen Neg NEGATIVE Urine Fentanyl Screen Neg NEGATIVE Urine Barbiturates Screen Neg NEGATIVE Urine Phencyclidine Screen Neg NEGATIVE Urine Amphetamines Screen Neg NEGATIVE Urine Benzodiazepines Screen Neg NEGATIVE Urine Cocaine Screen Neg NEGATIVE Urine Cannabinoids Screen Pos NEGATIVE Assessment Assessment `IUP at 38w 3d GDMA2 IOL for above Spontaneous Rupture of Membranes THC pos in Urine Plan Plan Continue current management plan Frequent position change to facilitate labor and descent Intrauterine resuscitation PRN Labor analgesia PRN Supportive care Plan discussed with: Patient Visit Coding OBGYN Date of Service: Oct 19, 2024 Billing Provider: SABI EGAN CNM NEWSSTAND VENDOR Common Visit Codes: [id number] INP/OBS CARE(HIGH) NEWSSTAND VENDOR Procedure Codes: 75028-45- NON-STRESS TEST SABI EGAN CNM Oct 19, 2024 05:49
--- NOTE | 2024-10-19 06:53 | DVHPN2 ---
Chief Complaints Patient reports: No new complaints Nursing reports: No new complaints Objective Medications Current Medications Medications (Trade) Dose Ordered Sig/Lew Route PRN Reason Start Time Stop Time Status Last Admin Benzocaine (Dermoplast) 1 applic PRN PRN TOP PERINEAL AREA DISCOMFORT 10/18/24 19:45 10/18/24 22:15 Diagnostic Test (Pha) (Accu-Chek Comfort Curve T) 1 strip Q4HR 10/18/24 22:00 Lactated Ringer's 1,000 ml @ 125 mls/hr Q8H IV 10/18/24 19:45 10/19/24 00:10 Lidocaine HCl (Xylocaine) 20 ml ONCE PRN IJ PERINEAL AREA DISCOMFORT 10/18/24 19:45 Misoprostol (Cytotec) 50 mcg Q4HPRN PRN PO CERVICAL RIPENING 10/18/24 22:15 10/19/24 04:02 Nalbuphine HCl (Nubain) 10 mg Q4HP PRN IM MODERATE PAIN (4-6 PAIN SCALE) 10/18/24 19:45 Nalbuphine HCl (Nubain) 10 mg Q4HP PRN IV MODERATE PAIN (4-6 PAIN SCALE) 10/18/24 19:45 Sodium Lauryl Sulfate (Phisoderm) 240 ml PRN PRN TOP PERINEAL AREA DISCOMFORT 10/18/24 19:45 10/18/24 22:15 Witch Linda (Tucks) 1 pad PRN PRN TOP PERINEAL AREA DISCOMFORT 10/18/24 19:45 10/18/24 22:15 Others ve-2cm/60/-2 Studies Laboratory Tests 10/18/24 19:55 Test 10/18/24 19:55 Range/Units Serum Glucose 100 74-106 mg/dL Ass/Plan Assessment iol for gdm Plan rec 2 cytotec Visit Coding OBGYN Date of Service: Oct 19, 2024 Billing Provider: TRISTAN VENEGAS DO TWISTING FRAME OPERATOR Common Visit Codes: 98919-JGL/OBS SAME DATE (HIGH) TWISTING FRAME OPERATOR Procedure Codes: 33760-68- NON-STRESS TEST TRISTAN VENEGAS DO Oct 19, 2024 06:53
--- NOTE | 2024-10-19 08:06 | DVHPN2 ---
Chief Complaints Patient reports: No new complaints Nursing reports: No new complaints Objective Medications Current Medications Medications (Trade) Dose Ordered Sig/Lew Route PRN Reason Start Time Stop Time Status Last Admin Benzocaine (Dermoplast) 1 applic PRN PRN TOP PERINEAL AREA DISCOMFORT 10/18/24 19:45 10/18/24 22:15 Diagnostic Test (Pha) (Accu-Chek Comfort Curve T) 1 strip Q4HR 10/18/24 22:00 Lactated Ringer's 1,000 ml @ 125 mls/hr Q8H IV 10/18/24 19:45 10/19/24 00:10 Lidocaine HCl (Xylocaine) 20 ml ONCE PRN IJ PERINEAL AREA DISCOMFORT 10/18/24 19:45 Misoprostol (Cytotec) 50 mcg Q4HPRN PRN PO CERVICAL RIPENING 10/18/24 22:15 10/19/24 04:02 Nalbuphine HCl (Nubain) 10 mg Q4HP PRN IM MODERATE PAIN (4-6 PAIN SCALE) 10/18/24 19:45 Nalbuphine HCl (Nubain) 10 mg Q4HP PRN IV MODERATE PAIN (4-6 PAIN SCALE) 10/18/24 19:45 Sodium Lauryl Sulfate (Phisoderm) 240 ml PRN PRN TOP PERINEAL AREA DISCOMFORT 10/18/24 19:45 10/18/24 22:15 Witch Linda (Tucks) 1 pad PRN PRN TOP PERINEAL AREA DISCOMFORT 10/18/24 19:45 10/18/24 22:15 Others ve-4cm/60/-2 Studies Laboratory Tests 10/18/24 19:55 Test 10/18/24 19:55 Range/Units Serum Glucose 100 74-106 mg/dL Ass/Plan Assessment iol for gdm Plan cont with supportivecare start pitocin again possib of shoulder dystocia,nerve damage ,short term and long term acute care registered nurse morb /mort d/w pt .pt wants to proceed with vag del and refuses pcs option Visit Coding OBGYN Date of Service: Oct 19, 2024 Billing Provider: TRISTAN VENEGAS DO RADAR REPAIRER Common Visit Codes: 37490-RDW/OBS SAME DATE (MOD) RADAR REPAIRER Procedure Codes: 70518-41- NON-STRESS TEST TRISTAN VENEGAS DO Oct 19, 2024 08:06
[2024-10-19] MEDS ORDERED: NALOXONE HCL 0.4 MG/ML VIAL IV ONE (08:45)
[2024-10-19] MEDS ORDERED: ePHEDrine SULFATE 50 MG/ML AMP IV ONE (08:45)
[2024-10-19] MEDS ORDERED: LACTATED RINGER'S 500 ML IV ONE (08:45)
[2024-10-19] MEDS: ROPIVACAINE HCL 200 ML ONE (10:15)
[2024-10-19] MEDS: fentaNYL CITRATE 100 MCG/2 ML VL IV ONE (10:16)
[2024-10-19] MEDS: LACT. RINGERS/OXYTOCIN 20UNITS 1,000 ML IV SCH (10:31)
--- NOTE | 2024-10-19 13:24 | DVHPN2 ---
Chief Complaints Patient reports: No new complaints Nursing reports: No new complaints Objective Vitals Vital Signs Date Time Temp Pulse Resp B/P (MAP) Pulse Ox O2 Delivery O2 Flow Rate FiO2 10/19/24 10:16 120/68 Medications Current Medications Medications (Trade) Dose Ordered Sig/Lew Route PRN Reason Start Time Stop Time Status Last Admin Benzocaine (Dermoplast) 1 applic PRN PRN TOP PERINEAL AREA DISCOMFORT 10/18/24 19:45 10/18/24 22:15 Diagnostic Test (Pha) (Accu-Chek Comfort Curve T) 1 strip Q4HR 10/18/24 22:00 Lactated Ringer's 1,000 ml @ 125 mls/hr Q8H IV 10/18/24 19:45 10/19/24 00:10 Lidocaine HCl (Xylocaine) 20 ml ONCE PRN IJ PERINEAL AREA DISCOMFORT 10/18/24 19:45 Misoprostol (Cytotec) 50 mcg Q4HPRN PRN PO CERVICAL RIPENING 10/18/24 22:15 10/19/24 04:02 Nalbuphine HCl (Nubain) 10 mg Q4HP PRN IM MODERATE PAIN (4-6 PAIN SCALE) 10/18/24 19:45 Nalbuphine HCl (Nubain) 10 mg Q4HP PRN IV MODERATE PAIN (4-6 PAIN SCALE) 10/18/24 19:45 Ondansetron HCl (Zofran) 4 mg Q4HPRN PRN IV NAUSEA / VOMITING 10/19/24 13:00 Oxytocin 1,000 ml @ 6 ml/hr Q24H IV 10/19/24 08:30 10/19/24 10:31 Sodium Lauryl Sulfate (Phisoderm) 240 ml PRN PRN TOP PERINEAL AREA DISCOMFORT 10/18/24 19:45 10/18/24 22:15 Witch Linda (Tucks) 1 pad PRN PRN TOP PERINEAL AREA DISCOMFORT 10/18/24 19:45 10/18/24 22:15 Others VE-5CM/90/-2 Studies Laboratory Tests 10/18/24 19:55 Test 10/18/24 19:55 Range/Units Serum Glucose 100 74-106 mg/dL Ass/Plan Assessment LABOR Plan IUP PLACED AMNIO STARTED CONT W/SUPPORTIVE CARE Visit Coding OBGYN Date of Service: Oct 19, 2024 Billing Provider: TRISTAN VENEGAS DO MOLDER CLOSED MOLDS Common Visit Codes: 52110-VMD/OBS SAME DATE (HIGH) MOLDER CLOSED MOLDS Procedure Codes: 52065-35- NON-STRESS TEST TRISTAN VENEGAS DO Oct 19, 2024 13:24
[2024-10-19] MEDS ORDERED: SODIUM CHLORIDE 0.9% 200 ML IUPC ONE (13:30)
[2024-10-19] MEDS: ONDANSETRON HCL 4 MG/2 ML VIAL IV PRN (14:17)
[2024-10-19] MEDS: SODIUM CHLORIDE 0.9% 1,000 ML IUPC SCH (14:18)
[2024-10-19] MEDS: ceFAZolin 2 GM/D5W50ml 50 ML IV ONE (16:32)
[2024-10-19] MEDS ORDERED: miSOPROStol 100 mcg TAB ONE (16:58)
[2024-10-19] MEDS: METHYLERGONOVINE MALEATE 0.2 MG/ML AMP IM ONE ×2 (16:59→17:54)
--- NOTE | 2024-10-19 17:13 | LDN2 ---
Labor and Delivery Note Date 10/19/24 Age 39 3 Para 3 EDC 4-10 EGA 38+wks Diagnosis induction of labor for brittle dm,chronic abruption,hx of macrosomia,ama,thc use in preg ,morbid obesity Vaginal Delivery: VTX Vacuum Assisted: No Placenta: Spontaneous Sex: Female Apgars 8-8 Nuchal Cord Transected: No Amniotic Fluid: Clear Anesthesia epidural Episiotomy: No Extension: No Repaired with na EBL 300ml Labs Blood Bank 10/18/24 19:55: Blood Type O POSITIVE Complications none Conditions stable Comments/Significant Med Yulissa spece xam no cxal lac Visit Coding OBGYN Date of Service: Oct 19, 2024 Billing Provider: TRISTAN VENEGAS DO SMELTER LINER Common Visit Codes: 23094-KFT/OBS SAME DATE (HIGH) SMELTER LINER Procedure Codes: 15117-JXG DELIVERY ONLY TRISTAN VENEGAS DO Oct 19, 2024 17:13
[2024-10-19] MEDS: LACT. RINGERS/OXYTOCIN 20UNITS 500 ML IV ONE ×2 (17:29)
[2024-10-19] MEDS ORDERED: ONDANSETRON ODT 4 MG TAB PO PRN (18:30)
[2024-10-19] MEDS ORDERED: LACT. RINGERS/OXYTOCIN 20UNITS 500 ML IV ONE ×2 (18:30→19:00)
[2024-10-19 19:00] VITALS: BP 116/68; PULSE 88; RESP 18; TEMP 98.2; O2SAT 97
[2024-10-19] MEDS ORDERED: ceFAZolin 1GM/50ML 50 ML IV SCH (22:00)
[2024-10-19] MEDS: IBUPROFEN 600 MG TAB PO PRN (22:07)
[2024-10-19] MEDS: DOCUSATE SOD 100 MG CAP PO SCH (22:10)
[2024-10-19 23:30] VITALS: BP 118/72; PULSE 76; RESP 18; TEMP 98.2; O2SAT 97
[2024-10-20] MEDS: ACETAMINOPHEN 325 MG TAB PO PRN (00:08)
[2024-10-20] MEDS: ceFAZolin 1GM/50ML 50 ML IV SCH (00:29)
[2024-10-20 04:00] VITALS: BP 117/71; PULSE 72; RESP 18; TEMP 98.3; O2SAT 96
--- NOTE | 2024-10-20 04:47 | DVHPN2 ---
Progress Note Date Seen: Oct 20, 2024 Subjective S: Lochia minimal Tolerating regular diet well. Ambulating and voiding well w/o feeling lightheaded or dizzy. Passing flatus but no BM yet. Breast feeding. Contraceptive plan: Undecided. Desires and requests to be discharged home today w vital signs Vital Sign Date Time Temp Pulse Resp B/P (MAP) Pulse Ox O2 Delivery O2 Flow Rate FiO2 10/19/24 23:30 98.2 76 18 118/72 (87) 97 98.2 10/19/24 19:00 Room Air Total Intake and Output 10/19/24 10/19/24 10/20/24 15:00 23:00 07:00 Output Total 2150 ml Balance -2150 ml medications Current Medications Medications Dose Ordered Sig/Lew Route Start Time Stop Time Status Last Admin Dose Admin Lactated Ringer's 1,000 ml @ 125 mls/hr Q8H IV 10/18/24 19:45 10/19/24 00:10 125 MLS/HR Diagnostic Test (Pha) 1 strip Q4HR 10/18/24 22:00 Jose L Mckeon 1 pad PRN PRN TOP 10/18/24 19:45 10/18/24 22:15 1 PAD Sodium Lauryl Sulfate 240 ml PRN PRN TOP 10/18/24 19:45 10/18/24 22:15 240 ML Benzocaine 1 applic PRN PRN TOP 10/18/24 19:45 10/18/24 22:15 1 APPLIC Ondansetron HCl 4 mg Q4HPRN PRN IV 10/19/24 13:00 10/19/24 14:17 4 MG Ibuprofen 600 mg Q6HP PRN PO 10/19/24 18:30 10/19/24 22:07 600 MG Acetaminophen 650 mg Q4HP PRN PO 10/19/24 18:30 10/20/24 00:08 650 MG Ondansetron HCl 4 mg Q4HPRN PRN PO 10/19/24 18:30 Docusate Sodium 200 mg HS PO 10/19/24 22:00 10/19/24 22:10 200 MG Cefazolin Sodium 50 ml @ 100 mls/hr Q8H IV 10/20/24 00:00 10/20/24 00:29 100 MLS/HR laboratory and microbiology Laboratory Tests 10/18/24 19:55 Test 10/18/24 19:55 Range/Units Serum Glucose 100 74-106 mg/dL Objective O: A&O x3 NAD. Afebrile, VSS Chest: heart and lung sounds normal. Breasts: Nipples intact w/o cracks or soreness Abdomen: normal BS, soft, non-tender, no rebound or guarding, fundus firm @ U- 1, lochia minimal Perineum:- no edema, or erythema, Extremities: no edema or tenderness Lochia - minimal Assessment/Plan 39yo now ppd#1 s/p , doing well. Blood type: Rh Pos / Neg Breast feeding / & Formula feeding Rubella Immune Pain control with PO medications Bowel regimen: Increase fluid intake and fiber in diet, laxatives PRN Discharge plan: May discharge home later today if condition remains stable Plan discussed with: Patient Visit Coding OBGYN Date of Service: Oct 20, 2024 Billing Provider: SABI EGAN CNM SUSTAINABILITY OFFICER Common Visit Codes: 36059-[id number] INP/OBS CARE(HIGH) SABI EGAN CNM Oct 20, 2024 04:47
--- NOTE | 2024-10-20 05:04 | DVHDS2 ---
Discharge Summary Date of Admission Oct 18, 2024 at 19:25 Date of Discharge: Oct 20, 2024 Admitting Diagnosis IUP at 38w GDMA2 Polyhydramnios AMA IOL Labs/Diagnostic Data: Laboratory Results Test 10/20/24 00:11 10/18/24 19:55 10/18/24 19:50 POC Glucose 130 mg/dl (70-106) White Blood Count 10.0 10^3/uL (4.4-10.8) Red Blood Count 4.67 10^6/uL (4.0-5.20) Hemoglobin 14.4 g/dL (12.2-16.2) Hematocrit 41.5 % (36.0-46.0) Mean Corpuscular Volume 88.7 fL (80.0-100.0) Mean Corpuscular Hemoglobin 30.7 pg (28.0-32.0) Mean Corpuscular Hemoglobin Concent 34.6 g/dL (32.0-36.0) Red Cell Distribution Width 14.1 % (11.8-14.3) Platelet Count 221 10^3/uL (140-450) Mean Platelet Volume 7.9 fL (6.9-10.8) Neutrophils (%) (Auto) 72.0 % (37.0-80.0) Lymphocytes (%) (Auto) 17.9 % (10.0-50.0) Monocytes (%) (Auto) 8.5 % (0.0-12.0) Eosinophils (%) (Auto) 1.0 % (0.0-7.0) Basophils (%) (Auto) 0.6 % (0.0-2.0) Neutrophils # (Auto) 7.2 10 ^3/uL (1.6-8.6) Lymphocytes # (Auto) 1.8 10 ^3/uL (0.4-5.4) Monocytes # (Auto) 0.8 10 ^3/uL (0-1.3) Eosinophils # (Auto) 0.1 10 ^3/uL (0-0.8) Basophils # (Auto) 0.1 10 ^3/uL (0-0.2) Nucleated Red Blood Cells 0.1 % Prothrombin Time 9.8 sec (9.3-11.8) Prothrombin Time INR 0.92 (0.9-1.15) Activated Partial Thromboplast Time 26.4 SEC (24.5-34.5) Sodium Level 136 mmol/L (136-145) Potassium Level 4.0 mmol/L (3.5-5.1) Chloride Level 109 mmol/L (98-107) Carbon Dioxide Level 24 mmol/L (20-31) Anion Gap 3 (5-15) Blood Urea Nitrogen 9 mg/dL (9-23) Creatinine 0.55 mg/dL (0.550-1.02) Glomerular Filtration Rate Calc 121 mL/min (>90) BUN/Creatinine Ratio 16.4 (10.0-20.0) Serum Glucose 100 mg/dL (74-106) Calcium Level 9.5 mg/dL (8.7-10.4) Total Bilirubin 0.5 mg/dL (0.2-1.0) Aspartate Amino Transferase (AST) 11 U/L (13-40) Alanine Aminotransferase (ALT) < 9 U/L (7-40) Alkaline Phosphatase 136 U/L (46-116) Total Protein 6.5 g/dL (5.7-8.2) Albumin 4.1 g/dL (3.2-4.8) Treponema pallidum Antibody Non-reactive (Negative) Hepatitis C Antibody Negative (Negative) Urine Color Light-yellow (Yellow) Urine Clarity Clear (Clear) Urine pH 6.5 (5.0-9.0) Urine Specific Mccloud 1.012 (1.001-1.035) Urine Protein Negative (Negative) Urine Ketones Negative (Negative) Urine Blood Negative /uL (Negative) Urine Nitrite Negative (Negative) Urine Bilirubin Negative (Negative) Urine Urobilinogen Normal mg/dL (Negative) Urine Leukocyte Esterase 1+ /uL (Negative) Urine RBC 1 /hpf (0 - 4) Urine Microscopic WBC 8 /HPF (0-5) Urine Squamous Epithelial Cells Few /hpf (<5) Urine Bacteria Few /hpf (None Seen) Urine Mucus Few (None Seen) Urine Glucose Normal mg/dL (Normal) Urine Opiates Screen Neg (NEGATIVE) Urine Fentanyl Screen Neg (NEGATIVE) Urine Barbiturates Screen Neg (NEGATIVE) Urine Phencyclidine Screen Neg (NEGATIVE) Urine Amphetamines Screen Neg (NEGATIVE) Urine Benzodiazepines Screen Neg (NEGATIVE) Urine Cocaine Screen Neg (NEGATIVE) Urine Cannabinoids Screen Pos (NEGATIVE) Other Laboratory Tests 10/18/24 19:55 Brief Hx & Hospital Course: Admitted on 10/18/24 at 38w 5d EGA for IOL d/t GDMA2, polyhydramnios. Induction process started with cervical ripening medication and patient then had an uneventful labor, got labor epidural for pain relief. She progressed to 2nd stage of labor and had a over an intact perineum. ( See Delivery Note for details) Normal course; meeting milestones w/o any problem or complications. Operations or Procedures IOL Normal Spontaneous Vaginal Delivery Condition at Discharge: Good Final Diagnosis/Problems List IUP at 38w 5d GDMA2 AMA Discharge Disposition: Home Discharge Instruct/Medications Diet: Regular Diet comment: Routine regular diet rich in fiber, protein, iron and vitamin C with adequate fluid intake. Activity: No Restrictions, As Tolerated Activity comment: Balance activities with rest periods. self care instructions given. emergency signs and symptoms including pre-elampsia precautions and signs of PPD reviewed with patient. Follow up with OB Provider in 1 week Medications: Ibuprofen 600mg every 6 hours as needed for pain. Continue Vitamin and iron Discharge Statement: "Patient was advised to return to the ER or call 911 if any headaches, dizziness, shortness of breath, chest pain, abdominal pain, bleeding, fevers, or worsening of medical condition. Patient was counseled about treatment plan, medications, possible side effects, patientverbalized understanding. All questions were answered to the best of my ability. This discharge took greater then 30 minutes in planning, reviewing documentation, counseling the patient, and discussing with other team members." ASSESSMENT ASSESSMENT Hospital Course Admitted on 10/18/24 at 38w 5d EGA for IOL d/t GDMA2, polyhydramnios. Induction process started with cervical ripening medication and patient then had an uneventful labor, got labor epidural for pain relief. She progressed to 2nd stage of labor and had a over an intact perineum. ( See Delivery Note for details) Normal course; meeting milestones w/o any problem or complications. Assessment Term Delivery GDMA2 Polyhydramnios Visit Coding OBGYN Date of Service: Oct 20, 2024 Billing Provider: SABI EGAN CNM CIVIL ENGINEERING PROJECT DESIGNER Common Visit Codes: 48824-YSK/OBS DISCH DAY <30MIN SABI EGAN CNM Oct 20, 2024 05:04
[2024-10-20 07:00] VITALS: BP 111/66; PULSE 78; RESP 16; TEMP 98; O2SAT 98
[2024-10-20 14:55] VITALS: BP 106/69; PULSE 69; RESP 16; TEMP 98.1; O2SAT 97
[2024-10-20 18:27] VITALS: BP 115/74; PULSE 68; RESP 16; TEMP 98.2; O2SAT 97
== END 2024-10-20 18:27 | disposition home or self-care (01) | DRG 560 ==
LOC: LDRP 19:25
PROVIDERS: ADMIT Obstetrics & Gynecology; ATTEND Obstetrics & Gynecology
PROC: 10E0XZZ Delivery of Products of Conception, External Approach (ICD-10-PCS; principal; 2024-10-19)
PROC: 3E033VJ Introduction of Other Hormone into Peripheral Vein, Percutaneous Approach (ICD-10-PCS; 2024-10-19)
PROC: 3E0DXGC Introduction of Other Therapeutic Substance into Mouth and Pharynx, External Approach (ICD-10-PCS; 2024-10-19)
PROC: 3E0P7VZ Introduction of Hormone into Female Reproductive, Via Natural or Artificial Opening (ICD-10-PCS; 2024-10-19)
PROC: 3E0R3BZ Introduction of Anesthetic Agent into Spinal Canal, Percutaneous Approach (ICD-10-PCS; 2024-10-19)
PROC: 00HU33Z Insertion of Infusion Device into Spinal Canal, Percutaneous Approach (ICD-10-PCS; 2024-10-19)
DX: O24.424 Gestational diabetes mellitus in childbirth, insulin controlled (principal); Z37.0 Single live birth; O99.324 Drug use complicating childbirth; E66.01 Morbid (severe) obesity due to excess calories; O99.214 Obesity complicating childbirth; O40.3XX0 Polyhydramnios, third trimester, not applicable or unspecified; F12.90 Cannabis use, unspecified, uncomplicated; Z3A.38 38 weeks gestation of pregnancy; Z79.4 Long term (current) use of insulin; Z79.899 Other long term (current) drug therapy; Z79.84 Long term (current) use of oral hypoglycemic drugs
CPT/HCPCS: 36415; 59025; 59409; 62282; 80053; 80307; 81001; 81002; 82948; 82962; 85025; 85610; 85730; 86780; 86803; 86850; 86900; 86901; 94760; 94762; 96360; 96361; 96365; 96366; G0378; J2405; J2590